=== PATIENT | male | born 1995 | race Caucasian/White ===

== ENCOUNTER 2016-03-19 12:31 | Emergency (ER) | payer OTHER ==
[~2016-03-19] VITALS: Ht 180.3 cm; Wt 77.0 kg
[~2016-03-19 12:31] MED LIST: AUGMENTIN875 MG PO; MOTRIN800 MG PO
[2016-03-19 12:58] VITALS: BP 127/80
[2016-03-19 13:33] LABS: HEMATOCRIT 47.8 % (38.0-50.0); MCH 29.1 PG (29.0-34.0); MCHC 34.1 G/DL (30.0-36.0); MCV 85.2 FL (86-99); MEAN PLAT.VOLUME 10.8 uM^3 (9.0-12.4); PLATELET COUNT 222 K/uL (156-360); RBC DIS.WIDTH-CV 12.6 % (11.8-14.6); RBC DIS.WIDTH-SD 38.8 % (39-53); RED BLOOD COUNT 5.61 M/uL (4.00-5.50); WHITE BLOOD COUNT 18.3 K/uL (4.1-10.2)
[2016-03-19 13:41] LABS: CHLORIDE 104 mEq/L (99-109); POTASSIUM 4.3 mEq/L (3.7-5.4); SODIUM 140 mEq/L (136-147)
[2016-03-19 13:43] LABS: GLUCOSE 111 mg/dL (70-99)
[2016-03-19 13:44] LABS: ANION GAP 15 MEQ/L (2-14)
[2016-03-19 13:45] LABS: TOTAL BILIRUBIN 0.7 mg/dL (0.0-1.0)
[2016-03-19 13:47] LABS: ALKALINE PHOSPHATASE 84 IU/L (3-129); GFR ESTIMATE (CALCULATED) > 59 mL/min/
[2016-03-19 13:48] LABS: UREA NITROGEN (BUN) 17 mg/dL (9-23)
[2016-03-19] MEDS ORDERED: ZOFRAN ODT4 MG PO (16:09)
== END 2016-03-19 16:30 | disposition home or self-care (01) ==
LOC: EME 12:31
DX: K52.9 Noninfective gastroenteritis and colitis, unspecified (principal)
CPT/HCPCS: 80053; 81003; 85027; 99281; 99284

== ENCOUNTER 2016-12-03 09:55 | Emergency (ER) | payer SELFPAY ==
[~2016-12-03] VITALS: Ht 177.8 cm; Wt 101.7 kg
[~2016-12-03 09:55] MED LIST changes: +ZOFRAN ODT4 MG PO
[2016-12-03] MEDS ORDERED: ZITHROMAX250 MG PO (12:38)
[2016-12-03] MEDS ORDERED: ROBITUSSIN100 MG/5 M PO (12:40)
[2016-12-03 12:58] VITALS: BP 124/82
== END 2016-12-03 12:58 | disposition home or self-care (01) ==
LOC: EME 09:55
DX: B34.9 Viral infection, unspecified (principal); J40 Bronchitis, not specified as acute or chronic; J02.9 Acute pharyngitis, unspecified; F17.200 Nicotine dependence, unspecified, uncomplicated
CPT/HCPCS: 71020; 99281; 99283